=== PATIENT | male | born 1990 ===

== ENCOUNTER 2021-01-15 06:49 | Emergency (ER) | payer BC ==
[~2021-01-15] VITALS: Ht 180.3 cm; Wt 106.6 kg
[2021-01-15] MEDS ORDERED: WELLBUTRIN SR100 MG (07:24)
[2021-01-15] MEDS ORDERED: TERBINAFINE HC250 MG (07:24)
== END 2021-01-15 10:39 | disposition home or self-care (01) ==
LOC: ER 06:49
DX: S83.8X2A Sprain of other specified parts of left knee, initial encounter (principal); X50.0XXA Overexertion from strenuous movement or load, initial encounter; Y93.89 Activity, other specified; Y92.89 Other specified places as the place of occurrence of the external cause; Y99.8 Other external cause status